=== PATIENT | male | born 1950 | race Caucasian/White ===

== ENCOUNTER 2018-01-15 00:18 | Emergency (ER) | payer OTHER ==
[~2018-01-15] VITALS: Ht 190.5 cm; Wt 93.0 kg
[2018-01-15] MEDS ORDERED: PERCOCET 5-3251 EACH PO (02:25)
[2018-01-15] MEDS ORDERED: ONDANSETRON ODT4 MG SL (02:26)
== END 2018-01-15 02:52 | disposition home or self-care (01) ==
LOC: ED 00:18
DX: N13.2 Hydronephrosis with renal and ureteral calculous obstruction (principal); K57.30 Diverticulosis of large intestine without perforation or abscess without bleeding
CPT/HCPCS: 74176; 80053; 81001; 83690; 85025; 96374; 96375; 99284; J1170; J2001; J2405; J7030

== ENCOUNTER 2020-09-03 05:40 | Day surgery (SDC) | payer OTHER ==
[~2020-09-03] VITALS: Ht 190.5 cm; Wt 94.1 kg
[~2020-09-03 05:40] MED LIST: FISH OIL + D31 EACH PO; ONDANSETRON ODT4 MG SL; PERCOCET 5-3251 EACH PO; VIT C-ROSE HIP500 MG PO
[2020-09-03] MEDS ORDERED: HYDROCODON-ACE1 EA10 PO (07:44)
[2020-09-03] MEDS ORDERED: CELECOXIB200 MG PO (07:44)
--- NOTE | 2020-09-03 07:44 | NUR ---
09/03/20 0744 Yoly Jefferson 0740 PATIENT ARRIVES TO PACU AWAKE BUT DROWSY. RESP EVEN AND UNLABORED. DENIES PAIN OR NAUSEA. 0743 PATIENT AWAKE BUT DROWSY. RESP EVEN AND UNLABORED, OXYGEN OFF, ROOM AIR SATS ?95%.
--- NOTE | 2020-09-03 08:00 | NUR ---
0800: PT ARRIVES BACK TO DS TREATMENT ROOM FROM PACU AWAKE. PT RATES PAIN IN RIGHT KNEE AT 3/10 AND "TWINGE" OF PAIN. PT DENIES NAUSEA AND TOLERATED WATER WELL. SPOUSE AT BEDSIDE. PT PROVIDED JELLO AND ICED WATER REFILLED. CALL LIGHT WITHIN REACH, DC CRITERIA EXPLAINED.
--- NOTE | 2020-09-03 09:16 | NUR ---
PT UP TO BATHROOM WITH RN AND SPOUSE. STEADY ON FEET, DENIES DIZZINESS/NAUSEA. ABLE TO VOID QS, BACK TO BED WITH SCD IN PLACE. PT STATES PAIN IN RIGHT KNEE, PLAN TO MEDICATE; SEE EMAR. CALL LIGHT WITHIN REACH.
--- NOTE | 2020-09-03 10:34 | NUR ---
0940: PATIENT ASSISTED OOB AND UP TO BATHROOM. GAIT STEADY. 0950: PATIENT DRESSED WITH HELP FROM . DISCHARGE INSTRUCTIONS GIVEN TO PATIENT AND . IV DC'D WNL. TIP INTACT. DRESSING APPLIED. VS CHECKED. 1003: PATIENT DISCHARGED TO HOME WITH VIA WHEELCHAIR.
--- NOTE | 2020-09-03 10:50 | NUR ---
PT TAKEN TO SURGERY, KARIE REMAINED IN . THIS IS PTS' FIRST SURGERY. GAVE OUTLINE OF WHAT THEY COULD EXPECT FROM THIS POINT. PT RETURNED FROM PACU WHILE IN . HE IS ALERT, DRINKING WATER. GAVE BLESSING, WILL FOLLOW
--- NOTE | 2020-09-04 10:59 | OR ---
[facility] [place] [facility] [address], [place] [address] Signed DATE OF OPERATION: 09/03/2020 SURGEON: Jenifer Hwang MD PREOPERATIVE DIAGNOSIS: Medial meniscus tear, right knee. POSTOPERATIVE DIAGNOSIS: Medial meniscus tear, right knee. PROCEDURE PERFORMED: Right knee arthroscopy with partial medial meniscectomy. FELT HAT FLANGING OPERATOR: None. ANESTHESIA: General. BLOOD LOSS: Minimal. BRIEF HISTORY: Maira is a 70-year-old healthy individual with pain and locking in his knee. MRI was consistent with a large medial meniscus tear. Risks and benefits of operative treatment were discussed with him. He elected to proceed. DESCRIPTION OF PROCEDURE: Once consent was obtained, he was taken to the operating room after adequate anesthesia. He was placed on the operating room table, left leg was flexed, abducted, and externally rotated on a well-padded leg madison. The right was placed in well-padded proximal thigh tourniquet and the portal sites were pre-injected using 0.25% Marcaine with epinephrine under an alcohol prep. The leg was then prepped and draped in a standard sterile fashion. Standard inferolateral and superolateral portals were made and the scope was introduced into the knee. ARTHROSCOPIC FINDINGS: The patellofemoral joint was intact mild chondromalacia. Medial and lateral gutters were clear. ACL was intact as was the PCL. Medial compartment showed a large complex medial meniscus tear with an anteriorly based inferior flap that was unstable. 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 The lateral compartment was intact. Standard inferomedial portal was made after localization using a spinal needle. The straight biter was then used to trim the meniscus tear back to a stable rim. This was smoothed using shaver and all debris was evacuated. The final rim was about 20-30% and was stable. The scope was withdrawn. Portals were closed with 3-0 nylon and dressed with Adaptic ABD and Christopher wrap. The knee was injected with 60 mg of Toradol prior to dressing application. He was awakened and taken to the recovery room in satisfactory condition. All sponge, needle, and instrument counts were correct. Jenifer Hwang MD BA/ROMI /[id number] Copies: ~ Electronically Signed By: JENIFER HWANG MD 09/04/20 1059 PATIENT NAME: MAIRA MARTINEZ OPERATIVE REPORT DATE OF : 52 REPORT #: [id number] PHYSICIAN: JENIFER HWANG MD PCP: ELISABET CHAMPION MD REPORT IS CONFIDENTIAL AND NOT TO BE RELEASED WITHOUT AUTHORIZATION
== END 2020-09-03 10:03 | disposition home or self-care (01) ==
LOC: DS 05:40
PROVIDERS: ATTEND Specialist
PROC: 0SBC4ZZ Excision of Right Knee Joint, Percutaneous Endoscopic Approach (ICD-10-PCS; principal; 2020-09-03 06:45)
DX: S83.231A Complex tear of medial meniscus, current injury, right knee, initial encounter (principal); M94.261 Chondromalacia, right knee; M17.11 Unilateral primary osteoarthritis, right knee; X58.XXXA Exposure to other specified factors, initial encounter; Z79.899 Other long term (current) drug therapy
CPT/HCPCS: J0690; J1100; J1885; J2001; J2405; J2704; J3010; J7121